=== PATIENT | male | born 1955 | race Caucasian/White ===

== ENCOUNTER 2021-06-28 22:26 | Inpatient (IN) ==
[2021-06-28 23:14] LABS: Basophils % 0.2 % (0.0-0.8); Hematocrit 41.1 VOL% (42.0-52.0); Hemoglobin 13.4 GM/DL (14.0-18.0); Immature Granulocytes % 0.4 %; Immature Granulocytes Absolute 0.04 #; Lymphocytes # 0.6 10*3/uL (1.4-4.0); Lymphocytes % 5.9 % (21.2-54.2); Mean Corpuscular HGB Conc 32.6 GM/DL (32-36); Mean Corpuscular Volume 90.1 FL (87-102); Mean Platelet Volume 9.8 FL (9.6-12.0); Monocytes % 5.3 % (1.7-12.7); Neutrophils % 88.2 % (38.7-73.9); Platelet Count 311 T/CUMM (130-400); Red Blood Count 4.56 MC/CUMM (3.8-5.5); Red Cell Distribution Width 12.3 % (9.3-17.3); White Blood Count 9.9 T/CUMM (4-12)
[2021-06-28 23:35] LABS: Acetaminophen < 2.0 UG/ML (10-30); Salicylate < 2.8 MG/DL (2.8-20)
[2021-06-28 23:42] LABS: ABG Base Excess -1.1 MMOL/L (-2.5-2.5); ABG HCO3 23.3 MMOL/L (20-26); ABG Oxygen Saturation 84.7 % (95-100); ABG PCO2 39.1 MM HG (35-48); ABG PO2 48.7 MM HG (80-95); ABG TCO2 20.7 MMOL/L (23-27)
[2021-06-28] MEDS ORDERED: LORazepam 2 MG/1 ML VIAL ONE (23:46)
[2021-06-28] MEDS ORDERED: LORazepam 2 MG/1 ML VIAL IV STA ×3 (23:49→23:57)
[2021-06-28 23:54] LABS: Bilirubin,Urine Negative (Negative); Blood, Urine Negative (Negative); Glucose,Urine (UA) 150 mg/dL (Negative); Granular Casts,Urine 6 /LPF (0-1); Hyaline Casts,Urine 23 /LPF (0-3); Ketones,Urine 20 mg/dL (Negative); Mucus,Urine Occasional /LPF (Occasional); Nitrite,Urine Negative (Negative); PT Patient Result 11.1 SECS (10.5-12.0); Protein,Urine 30 MG/DL; RBC,Urine <1 /HPF (0-4); Urine Appearance CLEAR (Clear); Urine Color Yellow (Yellow); Urine Specific Gravity 1.021 (1.001-1.035); Urine Urobilinogen < 2.0 EU/DL (0.2-1.0)
[2021-06-28 23:55] LABS: Barbiturates Screen,Urine Negative (Negative); Benzodiazepines Screen,Urine Negative (Negative); Cannabinoid Screen,Urine Negative (Negative); Opiate Screen,Urine Negative (Negative); Phencyclidine Screen,Urine Negative (Negative)
[2021-06-29 00:17] LABS: Alanine Aminotransferase 27 U/L (16-61); Albumin 4.2 G/DL (3.4-5.0); Alkaline Phosphatase 58 U/L (45-117); Aspartate Amino Transferase 22 U/L (0-37); Blood Urea Nitrogen 48 MG/DL (7-18); Calcium 9.4 MG/DL (8.5-10.1); Carbon Dioxide 18 MMOL/L (21-32); Estimated Glom Filtration Rate 35 ML/MIN; Glucose 145 MG/DL (74-106); Potassium 4.2 MMOL/L (3.5-5.1); Sodium 143 MMOL/L (136-145); Total Protein 7.6 G/DL (6.4-8.2)
[2021-06-29] MEDS ORDERED: LACTATED RINGERS 1,000 ML IV ONE (00:22)
[2021-06-29] MEDS ORDERED: HYDROmorphone 2 MG/1 ML VIAL IV STA (00:41)
[2021-06-29] MEDS ORDERED: ONDANSETRON 4 MG/2 ML VIAL IV ONE (00:41)
[2021-06-29] MEDS ORDERED: ONDANSETRON 4 MG/2 ML VIAL ONE (00:42)
[2021-06-29] MEDS ORDERED: HYDROmorphone 2 MG/1 ML VIAL ONE (00:42)
[2021-06-29] MEDS ORDERED: ONDANSETRON 4 MG/2 ML VIAL IV PRN (02:35)
[2021-06-29] MEDS ORDERED: ACETAMINOPHEN 325 MG TABLET PO PRN (02:35)
[2021-06-29] MEDS ORDERED: LACTATED RINGERS 1,000 ML IV SCH (03:00)
[2021-06-29] MEDS ORDERED: NALOXONE 0.4 MG/ML VIAL IV STA (06:06)
[2021-06-29 06:07] LABS: Basophils % 0.2 % (0.0-0.8); Eosinophils % 0.1 % (0.00-10.9); Hemoglobin 12.1 GM/DL (14.0-18.0); Immature Granulocytes % 0.3 %; Immature Granulocytes Absolute 0.03 #; Lymphocytes # 1.2 10*3/uL (1.4-4.0); Lymphocytes % 10.6 % (21.2-54.2); Mean Corpuscular HGB Conc 32.7 GM/DL (32-36); Mean Corpuscular Volume 91.8 FL (87-102); Mean Platelet Volume 9.5 FL (9.6-12.0); Monocytes % 7.9 % (1.7-12.7); Neutrophils % 80.9 % (38.7-73.9); Platelet Count 267 T/CUMM (130-400); Red Blood Count 4.03 MC/CUMM (3.8-5.5); Red Cell Distribution Width 12.3 % (9.3-17.3); White Blood Count 10.9 T/CUMM (4-12)
[2021-06-29] MEDS ORDERED: SODIUM CHLORIDE 0.9% 500 ML IV STA (06:18)
[2021-06-29 06:34] LABS: Albumin 3.6 G/DL (3.4-5.0); Bilirubin,Total 0.7 MG/DL (0.20-1.00); Potassium 4.5 MMOL/L (3.5-5.1); Total Protein 6.2 G/DL (6.4-8.2)
[2021-06-29] MEDS: SODIUM CHLORIDE 0.9% 1,000 ML IV SCH ×2 (08:18→16:02)
[2021-06-29] MEDS ORDERED: PANTOPRAZOLE 40 MG TABLET PO SCH (09:00)
[2021-06-29] MEDS: PANTOPRAZOLE 40 MG VIAL IV SCH (09:20)
[2021-06-29] MEDS: DOCUSATE SODIUM 100 MG CAPSULE PO SCH ×2 (09:20→22:57)
[2021-06-29] MEDS: PIPERACILLIN/TAZOBACTAM 3,375 MG in SODIUM CHLORIDE 0.9% 100 ML IV SCH ×2 (10:11→17:16)
[2021-06-29] MEDS: ACETAMINOPHEN 650 MG SUPP RECTAL PRN (17:16)
[2021-06-30] MEDS: PIPERACILLIN/TAZOBACTAM 3,375 MG in SODIUM CHLORIDE 0.9% 100 ML IV SCH ×3 (03:41→21:00)
[2021-06-30] MEDS: SODIUM CHLORIDE 0.9% 1,000 ML IV SCH ×5 (09:00→17:41)
[2021-06-30] MEDS: ACETAMINOPHEN 650 MG SUPP RECTAL PRN ×2 (09:42→18:14)
[2021-06-30] MEDS: PANTOPRAZOLE 40 MG VIAL IV SCH (09:42)
[2021-06-30] MEDS: DOCUSATE SODIUM 100 MG CAPSULE PO SCH ×2 (09:47→21:11)
[2021-06-30] MEDS ORDERED: cloNIDine 0.1 MG/24 HR PATCH TRANSDERM SCH (13:00)
[2021-06-30] MEDS: methylPREDNISolone SOD SUC 40 MG/1 ML VIAL IV SCH ×2 (14:21→21:03)
[2021-06-30] MEDS: METOPROLOL TARTRATE 5 MG/5 ML VIAL IV SCH (18:20)
[2021-06-30] MEDS: LEVALBUTEROL 0.63 MG/3 ML NEB RESP TX SCH (19:32)
[2021-06-30] MEDS: IPRATROPIUM 500 MCG/2.5 ML NEB RESP TX SCH (19:32)
[2021-07-01] MEDS: METOPROLOL TARTRATE 5 MG/5 ML VIAL IV SCH ×3 (00:39→13:28)
[2021-07-01] MEDS: LEVALBUTEROL 0.63 MG/3 ML NEB RESP TX SCH ×4 (01:09→19:42)
[2021-07-01] MEDS: IPRATROPIUM 500 MCG/2.5 ML NEB RESP TX SCH ×4 (01:09→19:42)
[2021-07-01] MEDS: SODIUM CHLORIDE 0.9% 1,000 ML IV SCH ×3 (02:24→21:10)
[2021-07-01] MEDS: PIPERACILLIN/TAZOBACTAM 3,375 MG in SODIUM CHLORIDE 0.9% 100 ML IV SCH ×3 (05:22→21:11)
[2021-07-01] MEDS: methylPREDNISolone SOD SUC 40 MG/1 ML VIAL IV SCH ×3 (05:26→21:10)
[2021-07-01 05:27] LABS: Albumin 3.1 G/DL (3.4-5.0); Bilirubin,Total 1.2 MG/DL (0.20-1.00); Calcium 8.7 MG/DL (8.5-10.1); Osmolality,Calculated 298.7 MOS/KG (273-304); Potassium 3.9 MMOL/L (3.5-5.1); Total Protein 6.3 G/DL (6.4-8.2)
[2021-07-01] MEDS: DOCUSATE SODIUM 100 MG CAPSULE PO SCH ×2 (10:03→21:09)
[2021-07-01] MEDS: PANTOPRAZOLE 40 MG VIAL IV SCH (10:03)
[2021-07-01] MEDS ORDERED: DEXTROSE 10% 1,000 ML IV PRN (12:00)
[2021-07-01] MEDS ORDERED: FAT EMULSION 20% 250 ML IV SCH (14:00)
[2021-07-01] MEDS ORDERED: MULTIVITAMIN INJ 10 ML in AMINO ACIDS/DEXT/LYTES 4.25-5% 1,000 ML IV SCH (17:00)
[2021-07-01] MEDS: ALPRAZolam 0.25 MG TABLET PO PRN (19:16)
[2021-07-01] MEDS: METOPROLOL TARTRATE 25 MG TABLET PO SCH (21:10)
[2021-07-02] MEDS: LEVALBUTEROL 0.63 MG/3 ML NEB RESP TX SCH ×4 (00:29→19:08)
[2021-07-02] MEDS: IPRATROPIUM 500 MCG/2.5 ML NEB RESP TX SCH ×4 (00:29→19:08)
[2021-07-02] MEDS: ALPRAZolam 0.25 MG TABLET PO PRN (02:35)
[2021-07-02] MEDS: PIPERACILLIN/TAZOBACTAM 3,375 MG in SODIUM CHLORIDE 0.9% 100 ML IV SCH ×2 (05:09→12:38)
[2021-07-02] MEDS: methylPREDNISolone SOD SUC 40 MG/1 ML VIAL IV SCH ×2 (05:11→12:38)
[2021-07-02] MEDS: LEVOTHYROXINE 125 MCG TABLET PO SCH (05:40)
[2021-07-02 06:32] LABS: Calcium 8.7 MG/DL (8.5-10.1); Osmolality,Calculated 301.6 MOS/KG (273-304); Potassium 3.9 MMOL/L (3.5-5.1)
[2021-07-02] MEDS ORDERED: CITALOPRAM 20 MG TABLET PO SCH (09:00)
[2021-07-02] MEDS: METOPROLOL TARTRATE 25 MG TABLET PO SCH ×2 (09:21→21:20)
[2021-07-02] MEDS: CARBIDOPA/LEVODOPA 25-100 MG TABLET PO SCH (09:21)
[2021-07-02] MEDS: PANTOPRAZOLE 40 MG VIAL IV SCH (09:22)
[2021-07-02] MEDS: DOCUSATE SODIUM 100 MG CAPSULE PO SCH ×2 (09:23→21:23)
[2021-07-02] MEDS: SODIUM CHLORIDE 0.9% 1,000 ML IV SCH (10:35)
[2021-07-02] MEDS: clonazePAM 0.5 MG TABLET PO PRN (16:52)
[2021-07-02] MEDS ORDERED: MULTIVITAMIN INJ 10 ML in AMINO ACIDS/DEXT/LYTES 4.25-5% 2,000 ML IV SCH (17:00)
[2021-07-02] MEDS ORDERED: methylPREDNISolone SOD SUC 40 MG/1 ML VIAL IV SCH (17:33)
[2021-07-02] MEDS: cefTRIAXone 1,000 MG in SODIUM CHLORIDE 0.9% 100 ML IV SCH (18:02)
[2021-07-02] MEDS: OLMESARTAN 20 MG TABLET PO SCH (18:02)
[2021-07-02] MEDS: AZITHROMYCIN INJ 500 MG in SODIUM CHLORIDE 0.9% 250 ML IV SCH (18:02)
[2021-07-02] MEDS: MIRTAZAPINE 15 MG TABLET PO SCH (21:19)
[2021-07-02] MEDS: BACLOFEN 10 MG TABLET PO SCH (21:20)
[2021-07-02] MEDS: tiZANidine 4 MG TABLET PO SCH (21:23)
[2021-07-03] MEDS: IPRATROPIUM 500 MCG/2.5 ML NEB RESP TX SCH ×4 (00:40→19:32)
[2021-07-03] MEDS: LEVALBUTEROL 0.63 MG/3 ML NEB RESP TX SCH ×4 (00:40→19:32)
[2021-07-03] MEDS: methylPREDNISolone SOD SUC 40 MG/1 ML VIAL IV SCH ×2 (01:20→13:20)
[2021-07-03] MEDS: LEVOTHYROXINE 125 MCG TABLET PO SCH (06:14)
[2021-07-03] MEDS: FENOFIBRATE 160 MG TABLET PO SCH (09:16)
[2021-07-03] MEDS: PANTOPRAZOLE 40 MG VIAL IV SCH (09:19)
[2021-07-03] MEDS: CARBIDOPA/LEVODOPA 25-100 MG TABLET PO SCH (09:21)
[2021-07-03] MEDS: tiZANidine 4 MG TABLET PO SCH ×3 (09:22→18:19)
[2021-07-03] MEDS: METOPROLOL TARTRATE 25 MG TABLET PO SCH (09:22)
[2021-07-03] MEDS: OLMESARTAN 20 MG TABLET PO SCH ×2 (09:23→18:06)
[2021-07-03] MEDS: BACLOFEN 10 MG TABLET PO SCH ×2 (09:24→18:26)
[2021-07-03] MEDS: DOCUSATE SODIUM 100 MG CAPSULE PO SCH (09:24)
[2021-07-03] MEDS: cefTRIAXone 1,000 MG in SODIUM CHLORIDE 0.9% 100 ML IV SCH (17:11)
[2021-07-03] MEDS: AZITHROMYCIN INJ 500 MG in SODIUM CHLORIDE 0.9% 250 ML IV SCH (18:05)
[2021-07-04] MEDS: DOCUSATE SODIUM 100 MG CAPSULE PO SCH ×3 (00:14→20:58)
[2021-07-04] MEDS: BACLOFEN 10 MG TABLET PO SCH ×4 (00:14→20:57)
[2021-07-04] MEDS: METOPROLOL TARTRATE 25 MG TABLET PO SCH ×3 (00:15→20:56)
[2021-07-04] MEDS: MIRTAZAPINE 15 MG TABLET PO SCH ×2 (00:15→20:56)
[2021-07-04] MEDS: methylPREDNISolone SOD SUC 40 MG/1 ML VIAL IV SCH ×2 (00:16→14:12)
[2021-07-04] MEDS: tiZANidine 4 MG TABLET PO SCH ×5 (00:20→20:57)
[2021-07-04] MEDS: LEVALBUTEROL 0.63 MG/3 ML NEB RESP TX SCH ×4 (01:57→19:00)
[2021-07-04] MEDS: IPRATROPIUM 500 MCG/2.5 ML NEB RESP TX SCH ×4 (01:57→19:00)
[2021-07-04] MEDS: LEVOTHYROXINE 125 MCG TABLET PO SCH (05:53)
[2021-07-04] MEDS: CARBIDOPA/LEVODOPA 25-100 MG TABLET PO SCH (10:00)
[2021-07-04] MEDS: OLMESARTAN 20 MG TABLET PO SCH (10:01)
[2021-07-04] MEDS: FENOFIBRATE 160 MG TABLET PO SCH (10:01)
[2021-07-04] MEDS: PANTOPRAZOLE 40 MG VIAL IV SCH (10:03)
[2021-07-04] MEDS: cefTRIAXone 1,000 MG in SODIUM CHLORIDE 0.9% 100 ML IV SCH (18:30)
[2021-07-04] MEDS: AZITHROMYCIN INJ 500 MG in SODIUM CHLORIDE 0.9% 250 ML IV SCH (19:18)
[2021-07-05] MEDS: LEVALBUTEROL 0.63 MG/3 ML NEB RESP TX SCH ×4 (00:10→20:20)
[2021-07-05] MEDS: IPRATROPIUM 500 MCG/2.5 ML NEB RESP TX SCH ×4 (00:10→20:20)
[2021-07-05] MEDS: methylPREDNISolone SOD SUC 40 MG/1 ML VIAL IV SCH ×2 (00:56→13:20)
[2021-07-05] MEDS: LEVOTHYROXINE 125 MCG TABLET PO SCH (06:14)
[2021-07-05] MEDS ORDERED: SODIUM CHLORIDE 0.45% 1,000 ML IV SCH (09:00)
[2021-07-05] MEDS: FENOFIBRATE 160 MG TABLET PO SCH (09:36)
[2021-07-05] MEDS: DOCUSATE SODIUM 100 MG CAPSULE PO SCH ×2 (09:36→20:23)
[2021-07-05] MEDS: BACLOFEN 10 MG TABLET PO SCH ×3 (09:36→20:23)
[2021-07-05] MEDS: OLMESARTAN 20 MG TABLET PO SCH (09:36)
[2021-07-05] MEDS: METOPROLOL TARTRATE 25 MG TABLET PO SCH ×2 (09:36→20:22)
[2021-07-05] MEDS: tiZANidine 4 MG TABLET PO SCH ×4 (09:37→20:22)
[2021-07-05] MEDS: CARBIDOPA/LEVODOPA 25-100 MG TABLET PO SCH (09:37)
[2021-07-05] MEDS: PANTOPRAZOLE 40 MG VIAL IV SCH (09:37)
[2021-07-05] MEDS: amLODIPine 5 MG TABLET PO SCH ×2 (10:45→20:22)
[2021-07-05] MEDS: traMADol 50 MG TABLET PO PRN (13:21)
[2021-07-05] MEDS: cefTRIAXone 1,000 MG in SODIUM CHLORIDE 0.9% 100 ML IV SCH (17:59)
[2021-07-05] MEDS: AZITHROMYCIN INJ 500 MG in SODIUM CHLORIDE 0.9% 250 ML IV SCH (18:38)
[2021-07-05] MEDS: MIRTAZAPINE 15 MG TABLET PO SCH (20:23)
[2021-07-06] MEDS: methylPREDNISolone SOD SUC 40 MG/1 ML VIAL IV SCH ×3 (00:13→23:45)
[2021-07-06] MEDS: LEVALBUTEROL 0.63 MG/3 ML NEB RESP TX SCH ×4 (01:00→22:23)
[2021-07-06] MEDS: IPRATROPIUM 500 MCG/2.5 ML NEB RESP TX SCH ×4 (01:00→22:23)
[2021-07-06 04:36] LABS: Basophils % 0.1 % (0.0-0.8); Eosinophils # 0.2 10*3/uL (0.0-0.87); Eosinophils % 2.4 % (0.00-10.9); Hematocrit 39.6 VOL% (42.0-52.0); Hemoglobin 12.7 GM/DL (14.0-18.0); Immature Granulocytes % 1.3 %; Immature Granulocytes Absolute 0.09 #; Lymphocytes # 0.7 10*3/uL (1.4-4.0); Lymphocytes % 10.3 % (21.2-54.2); Mean Corpuscular HGB Conc 32.1 GM/DL (32-36); Mean Corpuscular Volume 91.5 FL (87-102); Mean Platelet Volume 9.5 FL (9.6-12.0); Monocytes % 7.4 % (1.7-12.7); Neutrophils % 78.5 % (38.7-73.9); Platelet Count 248 T/CUMM (130-400); Red Blood Count 4.33 MC/CUMM (3.8-5.5); Red Cell Distribution Width 12.9 % (9.3-17.3); White Blood Count 7.1 T/CUMM (4-12)
[2021-07-06 05:15] LABS: Albumin 3.1 G/DL (3.4-5.0); Bilirubin,Total 0.6 MG/DL (0.20-1.00); Calcium 8.5 MG/DL (8.5-10.1); Osmolality,Calculated 281.5 MOS/KG (273-304); Potassium 3.8 MMOL/L (3.5-5.1); Total Protein 6.3 G/DL (6.4-8.2)
[2021-07-06] MEDS: LEVOTHYROXINE 125 MCG TABLET PO SCH (05:34)
[2021-07-06] MEDS: PANTOPRAZOLE 40 MG VIAL IV SCH (09:03)
[2021-07-06] MEDS: tiZANidine 4 MG TABLET PO SCH ×4 (09:04→20:28)
[2021-07-06] MEDS: OLMESARTAN 20 MG TABLET PO SCH (09:04)
[2021-07-06] MEDS: METOPROLOL TARTRATE 25 MG TABLET PO SCH ×2 (09:04→20:28)
[2021-07-06] MEDS: BACLOFEN 10 MG TABLET PO SCH ×3 (09:04→20:28)
[2021-07-06] MEDS: FENOFIBRATE 160 MG TABLET PO SCH (09:04)
[2021-07-06] MEDS: DOCUSATE SODIUM 100 MG CAPSULE PO SCH ×2 (09:04→20:30)
[2021-07-06] MEDS: amLODIPine 5 MG TABLET PO SCH ×2 (09:04→20:33)
[2021-07-06] MEDS: CARBIDOPA/LEVODOPA 25-100 MG TABLET PO SCH (09:04)
[2021-07-06] MEDS ORDERED: hydrALAZINE 20 MG/1 ML VIAL IV PRN (10:05)
[2021-07-06] MEDS ORDERED: ACETAMINOPHEN 325 MG TABLET PO ONE (15:12)
[2021-07-06] MEDS: cefTRIAXone 1,000 MG in SODIUM CHLORIDE 0.9% 100 ML IV SCH (18:22)
[2021-07-06] MEDS: AZITHROMYCIN INJ 500 MG in SODIUM CHLORIDE 0.9% 250 ML IV SCH (19:13)
[2021-07-06] MEDS: MIRTAZAPINE 15 MG TABLET PO SCH (20:28)
[2021-07-07] MEDS: traMADol 50 MG TABLET PO PRN (00:21)
[2021-07-07] MEDS: IPRATROPIUM 500 MCG/2.5 ML NEB RESP TX SCH ×4 (00:56→19:43)
[2021-07-07] MEDS: LEVALBUTEROL 0.63 MG/3 ML NEB RESP TX SCH ×4 (00:57→19:43)
[2021-07-07] MEDS: LEVOTHYROXINE 125 MCG TABLET PO SCH (05:49)
[2021-07-07 06:10] LABS: Albumin 2.9 G/DL (3.4-5.0); Bilirubin,Total 1.1 MG/DL (0.20-1.00); Calcium 8.3 MG/DL (8.5-10.1); Osmolality,Calculated 281.4 MOS/KG (273-304); Total Protein 5.5 G/DL (6.4-8.2)
[2021-07-07] MEDS: CARBIDOPA/LEVODOPA 25-100 MG TABLET PO SCH (08:46)
[2021-07-07] MEDS: FENOFIBRATE 160 MG TABLET PO SCH (08:46)
[2021-07-07] MEDS: OLMESARTAN 20 MG TABLET PO SCH (08:46)
[2021-07-07] MEDS: DOCUSATE SODIUM 100 MG CAPSULE PO SCH ×2 (08:46→21:19)
[2021-07-07] MEDS: METOPROLOL TARTRATE 25 MG TABLET PO SCH ×2 (08:46→21:18)
[2021-07-07] MEDS: tiZANidine 4 MG TABLET PO SCH ×4 (08:46→21:18)
[2021-07-07] MEDS: BACLOFEN 10 MG TABLET PO SCH ×3 (08:46→21:18)
[2021-07-07] MEDS: amLODIPine 5 MG TABLET PO SCH ×2 (08:46→21:19)
[2021-07-07] MEDS: ACETAMINOPHEN 325 MG TABLET PO PRN (08:47)
[2021-07-07] MEDS: PANTOPRAZOLE 40 MG VIAL IV SCH (08:49)
[2021-07-07] MEDS: methylPREDNISolone SOD SUC 40 MG/1 ML VIAL IV SCH (12:18)
[2021-07-07] MEDS: clonazePAM 0.5 MG TABLET PO PRN (14:08)
[2021-07-07] MEDS: cefTRIAXone 1,000 MG in SODIUM CHLORIDE 0.9% 100 ML IV SCH (17:34)
[2021-07-07] MEDS: AZITHROMYCIN INJ 500 MG in SODIUM CHLORIDE 0.9% 250 ML IV SCH (18:12)
[2021-07-07] MEDS: MIRTAZAPINE 15 MG TABLET PO SCH (21:19)
[2021-07-08] MEDS: LEVALBUTEROL 0.63 MG/3 ML NEB RESP TX SCH ×3 (01:00→14:30)
[2021-07-08] MEDS: IPRATROPIUM 500 MCG/2.5 ML NEB RESP TX SCH ×3 (01:00→14:30)
[2021-07-08] MEDS: methylPREDNISolone SOD SUC 40 MG/1 ML VIAL IV SCH ×2 (03:47→12:02)
[2021-07-08] MEDS: LEVOTHYROXINE 125 MCG TABLET PO SCH (06:36)
[2021-07-08] MEDS: CARBIDOPA/LEVODOPA 25-100 MG TABLET PO SCH (08:27)
[2021-07-08] MEDS: ACETAMINOPHEN 325 MG TABLET PO PRN (08:27)
[2021-07-08] MEDS: FENOFIBRATE 160 MG TABLET PO SCH (08:27)
[2021-07-08] MEDS: METOPROLOL TARTRATE 25 MG TABLET PO SCH (08:27)
[2021-07-08] MEDS: OLMESARTAN 20 MG TABLET PO SCH (08:28)
[2021-07-08] MEDS: PANTOPRAZOLE 40 MG VIAL IV SCH (08:28)
[2021-07-08] MEDS: amLODIPine 5 MG TABLET PO SCH (08:28)
[2021-07-08] MEDS: DOCUSATE SODIUM 100 MG CAPSULE PO SCH (08:28)
[2021-07-08] MEDS: BACLOFEN 10 MG TABLET PO SCH ×2 (08:28→14:17)
[2021-07-08] MEDS: tiZANidine 4 MG TABLET PO SCH ×2 (08:34→14:18)
[2021-07-08 13:18] VITALS: BP 108/61
== END 2021-07-08 15:48 | DRG 194 ==
LOC: EDBD → EDUNIT# → N.ED 22:26 → N.EDINP 22:26 → N.TELEN 06-29 04:14
PROVIDERS: ADMIT Internal Medicine; ATTEND Internal Medicine